=== PATIENT | female | born 1960 | race Caucasian/White ===

== ENCOUNTER 2018-12-06 20:54 | Emergency (ER) | payer OTHER ==
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
[2018-12-06] MEDS ORDERED: fentaNYL CITR 100 MCG/2 ML AMP IVP ONE ×2 (21:20→23:25)
[2018-12-06] MEDS ORDERED: ONDANSETRON 4 MG/2 ML VIAL IVP ONE (21:20)
[2018-12-06] MEDS ORDERED: IOPAMIDOL 76% 50 ML INFUS BTL 100 ML ONE (22:08)
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
[2018-12-07] MEDS ORDERED: OXYC-865 PO (01:03)
[2018-12-07] MEDS ORDERED: oxyCODONE/ACETAMIN 5/325MG TH 2 TAB/BOTTLE PO ONE (01:05)
[2018-12-07 01:18] VITALS: BP 108/72
== END 2018-12-07 01:36 | disposition home or self-care (01) ==
LOC: ER 21:20
DX: S39.012A Strain of muscle, fascia and tendon of lower back, initial encounter (principal); S60.512A Abrasion of left hand, initial encounter; S60.511A Abrasion of right hand, initial encounter; V48.6XXA Car passenger injured in noncollision transport accident in traffic accident, initial encounter
CPT/HCPCS: 70450; 71045; 71260; 72125; 72129; 72132; 73502; 74177; 96374; 96375; 96376; 99284; J2405; J3010; Q9967

== ENCOUNTER → 2018-12-06 | Outpatient (CLI) | payer OTHER ==
[~2018-12-06] MED LIST: OXYC-865 PO
== END ==
LOC: AMB 20:16
PROVIDERS: ATTEND Nurse Practitioner
DX: M54.9 Dorsalgia, unspecified (principal); R20.2 Paresthesia of skin; V48.6XXA Car passenger injured in noncollision transport accident in traffic accident, initial encounter; Y92.411 Interstate highway as the place of occurrence of the external cause
CPT/HCPCS: A0425; A0427